=== PATIENT | male | born 1990 | race Caucasian/White ===

== ENCOUNTER 2025-06-01 06:11 | Outpatient (REF) | payer OTHER, SELFPAY ==
--- NOTE | ~2025-06-01 | US_ITS ---
EXAMINATION: US ABDOMEN HISTORY: Generalized abdominal pain TECHNIQUE: Real-time grayscale ultrasound imaging of the abdomen was performed and images were reviewed. COMPARISON: There are no prior studies available for comparison. FINDINGS: Liver: The right lobe of the liver measures 17.6 cm in size. The left lobe of the liver measures 8.8 cm in size. The liver demonstrates normal homogeneous echotexture. No focal mass or intrahepatic biliary ductal dilatation is identified. There is normal hepatopedal flow in the portal vein. Gallbladder and biliary tree: There is a small amount of debris in the gallbladder. The gallbladder is otherwise unremarkable, without evidence of calculi, wall thickening, or pericholecystic fluid. There is no sonographic Rosas sign. The common bile duct is normal in caliber measuring 3 mm. Kidneys: The right kidney measures 11.2 cm in length. The left kidney measures 11.0 cm in length. The kidneys are unremarkable, without evidence of masses, hydronephrosis, or calculi. Pancreas: The pancreatic head, neck, and body are unremarkable. The pancreatic tail is obscured by bowel gas. Spleen: The spleen is mildly enlarged, measuring 12.6 cm in length. Abdominal aorta and inferior vena cava: The visualized portions of the abdominal aorta and inferior vena cava are normal in caliber. There is no free fluid in the abdomen. US/US abdomen complete IMPRESSION: 1. Small amount of debris in the gallbladder without evidence of acute cholecystitis. 2. Mild splenomegaly. Electronically signed by: Aniket Ware MD 06/01/2025 09:16 AM EDT
== END 2025-06-01 06:12 | disposition home or self-care (01) ==
LOC: HO.UMASIMG 06:11
PROVIDERS: Visit Provider Physician Assistant Medical
DX: R10.84 Generalized abdominal pain (principal); M79.605 Pain in left leg
CPT/HCPCS: 76700

== ENCOUNTER → 2025-06-01 08:43 | Outpatient (BNV) | payer OTHER, SELFPAY | PROVIDERS: Visit Provider Radiology Diagnostic Radiology | DX: R16.1 Splenomegaly, not elsewhere classified (principal) | CPT/HCPCS: 76700 ==